=== PATIENT | female | born 1930 | race Caucasian/White ===

== ENCOUNTER 2016-06-14 10:56 | Emergency (ER) | payer MEDICARE, MEDICAID ==
[2016-06-14] MEDS ORDERED: PROMETHAZINE HCL 25 MG/ML VIAL IVP ONE (11:49)
[2016-06-14 12:18] LABS: BASO % 0.9 % (0-6); EOS % 4.2 % (0-6); GRAN % 72.6 % (47-80); HEMATOCRIT 34.2 % (35.0-47.0); HEMOGLOBIN 10.9 gm/dl (11.6-16.0); LYMPH % 10.1 % (16-45); MEAN CELL VOLUME 93.7 fl (81-97); MEAN CORPUSCULAR HGB CONC 31.9 g/dl (32-36); MEAN PLATELET VOLUME 7.8 fl (7.4-10.4); MONO % 12.2 % (0-9); PLATELET COUNT 342 K/uL (130-400); RED BLOOD COUNT 3.65 M/uL (3.80-5.40); RED CELL DISTRIBUTION WIDTH 12.4 % (11.5-14.5); WHITE BLOOD COUNT W/O DIFF 3.4 K/uL (4.2-12.2)
[2016-06-14 12:19] LABS: MEAN CORPUSCULAR HEMOGLOBIN 29.8 pg (27-33)
[2016-06-14 12:30] LABS: ANION GAP 14.6 (7-16); BLOOD UREA NITROGEN 14 mg/dL (7-17); CARBON DIOXIDE 29.4 mmol/L (22-30); CREATININE 0.9 mg/dL (0.52-1.04); EST GLOMERULAR FILTRATION RATE > 60 ml/min; GLUCOSE,RANDOM 96 mg/dL (70-110)
[2016-06-14] MEDS ORDERED: HYDROMORPHONE HCL 1 MG/ML CPJ IVP ONE (13:21)
--- NOTE | 2016-06-14 13:21 | Emergency Department Record ---
History of Present Illness - General Chief Complaint: Dizziness Stated Complaint: DIZZINESS Time Seen by Provider: 06/14/16 11:49 Source: Patient Mode of Arrival: Ambulatory Limitations: No limitations - History of Present Illness Initial Comments: pt has vertigo just like she has had in the past. she had an mri of her brain 3 days ago. she has had n/v and been unable to keep her meds down. she has antivert but it hasnt helped. Complaint: Dizziness Onset/Timin -: Days(s) Timing: Gradual onset Description: Nausea, "Room spinning" History of Same: Yes History of Trauma: No Severity: Moderate Improves With: Nothing Worsens With: Movement, Position Associated Symptoms: Denies other symptoms - [place] Coma Scale Eye Response: (4) Open spontaneously Motor Response: (6) Obeys commands Verbal Response: (5) Oriented [place] Total: 15 - Symptoms of Stroke Symptoms of stroke: Vertigo - Related Data Home Medications Medication Instructions Recorded Confirmed Last Taken Aspirin 325 mg PO DAILY 07/11/14 06/14/16 06/13/16 [place]-3/Dha/Epa/Fish Oil [Fish Oil] 500 mg PO DAILY 07/11/14 06/14/16 06/13/16 Calcium Carbonate [Tums] 200 mg PO DAILY tab.chew 03/23/15 06/14/16 06/13/16 Previous Rx's Medication Instructions Recorded Promethazine HCl [Phenergan] 12.5 mg PO BID #10 tablet 06/14/16 Allergies Allergy/AdvReac Type Severity Reaction Status Date / Time Wogrxwq-[id number]-Djx Reductase AdvReac PT UNSURE Unverified 06/01/16 11:41 Inhibitor OF REACTION Travel Screening - Travel/Exposure Within Last 30 Days Have you traveled within the last 30 days?: No - Travel/Exposure Within Last Year Have you traveled outside the [place] in the last year?: No - Additonal Travel Details Have you been exposed to anyone with a communicable illness?: No - Travel Symptoms Symptom Screening: None Review of Systems Reviewed: No additional complaints except as noted below Constitutional: Reports: As per HPI. Denies: Chills, Fever, Malaise, Night sweats, Weakness, Weight change Eyes: Reports: As per HPI. Denies: Eye discharge, Eye pain, Photophobia, Vision change ENT: Reports: As per HPI. Denies: Congestion, Dental pain, Ear pain, Epistaxis , Hearing loss, Throat pain Respiratory: Reports: As per HPI. Denies: Cough, Dyspnea, Hemoptysis, Stridor, Wheezes Cardiovascular: Reports: As per HPI. Denies: Arrhythmia, Chest pain, Dyspnea on exertion, Edema, Murmurs, Orthopnea, Palpitations, Paroxysmal nocturnal dyspnea, Rheumatic Fever, Syncope Endocrine: Reports: As per HPI. Denies: Fatigue, Heat or cold intolerance, Polydipsia, Polyuria Gastrointestinal: Reports: As per HPI. Denies: Abdominal pain, Constipation, Diarrhea, Hematemesis, Hematochezia, Melena, Nausea, Vomiting Genitourinary: Reports: As per HPI. Denies: Abnormal menses, Discharge, Dyspareunia, Dysuria, Frequency, Hematuria, Incontinence, Retention, Urgency Musculoskeletal: Reports: As per HPI. Denies: Arthralgia, Back pain, Gout, Joint swelling, Myalgia, Neck pain Skin: Reports: As per HPI. Denies: Bruising, Change in color, Change in hair/ nails, Lesions, Pruritus, Rash Neurological: Reports: As per HPI. Denies: Abnormal gait, Confusion, Headache, Numbness, Paresthesias, Seizure, Tingling, Tremors, Vertigo, Weakness Psychiatric: Reports: As per HPI. Denies: Anxiety, Auditory hallucinations, Depression, Homicidal thoughts, Suicidal thoughts, Visual hallucinations Hematological/Lymphatic: Reports: As per HPI. Denies: Anemia, Blood Clots, Easy bleeding, Easy bruising, Swollen glands Past Medical History - SOCIAL HISTORY Smoking Status: Never smoker - RESPIRATORY Hx Respiratory Disorders: No - CARDIOVASCULAR Hx Cardio Disorders: No - NEURO Hx Neuro Disorders: Yes Hx Dizziness: Yes - GI Hx GI Disorders: Yes Hx Reflux: Yes Hx Pancreatitis: Yes - Hx Genitourinary Disorders: No - ENDOCRINE Hx Endocrine Disorders: No - MUSCULOSKELETAL Hx Musculoskeletal Disorders: Yes Hx Arthritis: Yes (neck) - PSYCH Hx Psych Problems: No - HEMATOLOGY/ONCOLOGY Hx Hematology/Oncology Disorders: Yes Hx Cancer: Yes (skin) Hx Chemotherapy: No Hx Radiation Therapy: Yes Family Medical History Any Significant Family History?: Yes Hx HTN: Mother Hx Kidney Disease: Brother/Sister Hx Seizures: Mother Physical Exam - General General Appearance: Alert, Oriented x3, Cooperative, Mild distress - Head Head exam: Normal inspection - Eye Eye exam: Normal appearance, PERRL, EOMI Pupils: Normal accommodation - ENT ENT exam: Normal exam, Mucous membranes moist, Normal external ear exam, Normal orophraynx, TM's normal bilaterally Ear exam: Normal external inspection. negative: External canal tenderness Nasal Exam: Normal inspection. negative: Discharge, Sinus tenderness Mouth exam: Normal external inspection, Tongue normal Teeth exam: Normal inspection. negative: Dental caries Throat exam: Normal inspection. negative: Tonsillar erythema, Tonsillar exudate - Neck Neck exam: Normal inspection, Full ROM. negative: Tenderness - Respiratory Respiratory exam: Normal lung sounds bilaterally. negative: Respiratory distress - Cardiovascular Cardiovascular Exam: Regular rate, Normal rhythm, Normal heart sounds - GI/Abdominal GI/Abdominal exam: Soft, Normal bowel sounds. negative: Tenderness - Rectal Rectal exam: Deferred - exam: Deferred - Extremities Extremities exam: Normal inspection, Full ROM, Normal capillary refill. negative: Tenderness - Back Back exam: Reports: Normal inspection, Full ROM. Denies: Muscle spasm, Rash noted, Tenderness - Neurological Neurological exam: Alert, CN II-XII intact, Normal gait, Oriented X3 - Psychiatric Psychiatric exam: Normal affect, Normal mood - Skin Skin exam: Dry, Intact, Normal color, Rash, Warm Type of lesion: Bite/sting Distribution of rash: Back Description of rash: Macular, Papular Course Vital Signs 06/14/16 11:02 Temperature 97.8 F Pulse Rate 68 Respiratory 20 Rate Blood Pressure 224/100 Pulse Ox 10 L - Reevaluation(s) Reevaluation #1: 06/14/16 14:30 pt developed a headache which improved when she took her bp med.review of mri , neg except aging changes Reevaluation #2: 06/14/16 14:32 06/14/16 14:36 pt feels much better Medical Decision Making - Lab Data Result diagrams: 06/14/16 12:05 06/14/16 12:05 Lab Results 06/14/16 06/14/16 Range/Units 12:05 12:05 WBC 3.4 L (4.2-12.2) K/uL RBC 3.65 L (3.80-5.40) M/uL Hgb 10.9 L (11.6-16.0) gm/dl Hct 34.2 L (35.0-47.0) % MCV 93.7 (81-97) fl MCH 29.8 (27-33) pg MCHC 31.9 L (32-36) g/dl RDW 12.4 (11.5-14.5) % Plt Count 342 (130-400) K/uL MPV 7.8 (7.4-10.4) fl Gran % 72.6 (47-80) % Lymphocytes % 10.1 L (16-45) % Monocytes % 12.2 H (0-9) % Eosinophils % 4.2 (0-6) % Basophils % 0.9 (0-6) % Sodium 141 (136-145) mmol/L Potassium 4.0 (3.5-5.1) mmol/L Chloride 97 L (98-107) mmol/L Carbon Dioxide 29.4 (22-30) mmol/L Anion Gap 14.6 (7-16) BUN 14 (7-17) mg/dL Creatinine 0.9 (0.52-1.04) mg/dL Estimated GFR > 60 ml/min Random Glucose 96 (70-110) mg/dL Calcium 9.5 (8.5-10.1) mg/dL Disposition Disposition: Discharge Clinical Impression: Vertigo Hypertension Qualifiers: Hypertension type: essential hypertension Qualified Code(s): I10 - Essential ( primary) hypertension Disposition: Home, Self-Care Condition: (1) Good Instructions: Vertigo (ED), Hypertension (ED) Additional Instructions: follow up with family doctor. return sooner if worse. recheck blood pressure tomorrow Prescriptions: Promethazine HCl [Phenergan] 12.5 mg PO BID #10 tablet Forms: Patient Portal Access
[2016-06-14] MEDS ORDERED: LOSARTAN POTASSIUM 25 MG TABLET PO ONE (13:32)
[2016-06-15] MEDS ORDERED: LOSARTAN POTASSIUM 25 MG TABLET PO SCH (10:00)
== END 2016-06-14 14:44 | disposition home or self-care (01) ==
LOC: ER 10:56
DX: R42 Dizziness and giddiness (principal); I10 Essential (primary) hypertension; R11.2 Nausea with vomiting, unspecified; R51 Headache
CPT/HCPCS: 99284 ×2; 96374; 96375; 85025; 80048; J1170; J2550

== ENCOUNTER 2016-08-09 10:43 | Emergency (ER) | payer MEDICARE, MEDICAID ==
--- NOTE | 2016-08-09 10:55 | Emergency Department Record ---
History of Present Illness - General Chief Complaint: Dizziness Stated Complaint: DIZZY,NAUSEA CAN'T WALK, NO BALANCE Time Seen by Provider: 08/09/16 10:53 Source: Patient Mode of Arrival: Ambulatory Limitations: No limitations - History of Present Illness Initial Comments: The patient is here due to a one day hx of dizziness which she describes as the room spinning at times and also feeling off balance. The symptoms are much worse with any head movement. She denies any JAMES, visual changes, CP, SOB, or any arm or leg numbness or weakness. The patient is able to walk but does have to hold onto things at times. She states she has had a long hx of this problem for at least 2 years and has seen multiple specialists with no resolution or diagnosis given. The symptoms do wax and wane and have not been present for months until yesterday when they returned. MD Complaint: Dizziness, Lightheadedness, Difficulty walking Onset/Timin -: Days(s) Timing: Unsure History of Same: Yes History of Trauma: No Severity: Mild Improves With: Nothing Worsens With: Nothing Associated Symptoms: Denies other symptoms - [place] Coma Scale Eye Response: (4) Open spontaneously Motor Response: (6) Obeys commands Verbal Response: (5) Oriented [place] Total: 15 - Related Data Home Medications Medication Instructions Recorded Confirmed Last Taken Aspirin 325 mg PO DAILY 07/11/14 08/09/16 08/09/16 [place]-3/Dha/Epa/Fish Oil [Fish Oil] 500 mg PO DAILY 07/11/14 08/09/16 08/09/16 Calcium Carbonate [Tums] 200 mg PO DAILY tab.chew 03/23/15 08/09/16 08/09/16 Hydrocodone/Acetaminophen [[place] 1 tab PO Q6H PRN 08/09/16 08/09/16 08/09/16 5mg/325mg] Allergies Allergy/AdvReac Type Severity Reaction Status Date / Time Lrjjigq-Hzq-Hdz Reductase AdvReac PT UNSURE Verified 08/09/16 10:54 Inhibitor OF REACTION Travel Screening - Travel/Exposure Within Last 30 Days Have you traveled within the last 30 days?: No - Travel/Exposure Within Last Year Have you traveled outside the [place] in the last year?: No - Additonal Travel Details Have you been exposed to anyone with a communicable illness?: No - Travel Symptoms Symptom Screening: None Review of Systems Constitutional: Denies: Chills, Fever Eyes: Denies: Eye discharge ENT: Denies: Congestion Respiratory: Denies: Cough, Dyspnea Cardiovascular: Denies: Arrhythmia, Chest pain Past Medical History - SOCIAL HISTORY Smoking Status: Never smoker Alcohol Use: Occassional Drug Use: None - RESPIRATORY Hx Respiratory Disorders: No - CARDIOVASCULAR Hx Cardio Disorders: No - NEURO Hx Neuro Disorders: Yes Hx Dizziness: Yes - GI Hx GI Disorders: Yes Hx Reflux: Yes Hx Pancreatitis: Yes - Hx Genitourinary Disorders: No - ENDOCRINE Hx Endocrine Disorders: No - MUSCULOSKELETAL Hx Musculoskeletal Disorders: Yes Hx Arthritis: Yes (neck) - PSYCH Hx Psych Problems: No - HEMATOLOGY/ONCOLOGY Hx Hematology/Oncology Disorders: Yes Hx Cancer: Yes (skin) Hx Chemotherapy: No Hx Radiation Therapy: Yes Family Medical History Any Significant Family History?: No Hx HTN: Mother Hx Kidney Disease: Brother/Sister Hx Seizures: Mother Physical Exam - General General Appearance: Alert, Oriented x3, Cooperative, No acute distress - Head Head exam: Atraumatic, Normocephalic, Normal inspection - Eye Eye exam: Normal appearance, PERRL - Neck Neck exam: Normal inspection, Full ROM. negative: Tenderness - Respiratory Respiratory exam: Normal lung sounds bilaterally. negative: Respiratory distress - Cardiovascular Cardiovascular Exam: Regular rate, Normal rhythm, Normal heart sounds - GI/Abdominal GI/Abdominal exam: Soft, Normal bowel sounds. negative: Tenderness - Extremities Extremities exam: Normal inspection, Full ROM, Normal capillary refill. negative: Tenderness - Neurological Neurological exam: Alert, Normal gait. negative: Abnormal gait, Motor sensory deficit Course Vital Signs 08/09/16 10:45 Temperature 97.1 F L Pulse Rate 70 Respiratory 14 Rate Blood Pressure 215/101 Pulse Ox 97 - Reevaluation(s) Reevaluation #1: The patient states she feels better at this time. She has no dizziness or lightheadedness presently and her BP is improved. 08/09/16 11:47 Reevaluation #2: The patient is doing well at this time. Her BP is improved and she denies any dizziness unless she is moving her head or walking. I did get the patient up walking and she is mildly unsteady but able to walk without falling. She states this is exactly normal for her Vertigo and it does get this bad at times. Due to her mild unsteadiness I did recommend keeping the patient in the hospital because I am a little concerned that she may fall at home. The patient understands this and still would like to go home. I explained to her that she could go home and fall and have a fx'd hip or a stroke or broken neck and she accepts the risks. She is to see her PCP next week for recheck. 08/09/16 12:37 Reevaluation #3: I did discuss the case with Dr. Winston and she agrees with the plan. 08/09/16 12:42 Medical Decision Making - Data Complexity MDM Data: Labs Ordered and/or Reviewed, X-Ray Ordered and/or Reviewed - Lab Data Result diagrams: 08/09/16 11:10 08/09/16 11:10 - Radiology Data Radiology results: Report reviewed (Head CT: No acute changes.) Disposition Disposition: Discharge Clinical Impression: Vertigo Instructions: Dizziness (ED) Additional Instructions: Please continue your regular medicines for dizziness and please see your PCP next week. Please return to the ER for any problems or worsening symptoms. Forms: Patient Portal Access Time of Disposition: 12:42
[2016-08-09 11:16] LABS: BASO % 1.4 % (0-6); EOS % 2.2 % (0-6); GRAN % 68.8 % (47-80); HEMATOCRIT 32.4 % (35.0-47.0); HEMOGLOBIN 10.3 gm/dl (11.6-16.0); LYMPH % 16.1 % (16-45); MEAN CELL VOLUME 92.8 fl (81-97); MEAN CORPUSCULAR HEMOGLOBIN 29.5 pg (27-33); MEAN CORPUSCULAR HGB CONC 31.8 g/dl (32-36); MEAN PLATELET VOLUME 7.7 fl (7.4-10.4); MONO % 11.5 % (0-9); PLATELET COUNT 328 K/uL (130-400); RED BLOOD COUNT 3.49 M/uL (3.80-5.40); RED CELL DISTRIBUTION WIDTH 13.1 % (11.5-14.5); WHITE BLOOD COUNT W/O DIFF 2.8 K/uL (4.2-12.2)
[2016-08-09] MEDS: MECLIZINE 25 MG TABLET PO ONE (11:26)
[2016-08-09] MEDS: DIAZEPAM 5 MG TABLET PO ONE (11:26)
[2016-08-09 11:28] LABS: ALB/GLOB RATIO 1.2 (1.1-1.8); ALBUMIN 4.1 gm/dL (3.5-5.0); ALKALINE PHOSPHATASE 66 U/L (38-126); ALT/SGPT 19 U/L (9-52); ANION GAP 8.2 (7-16); AST/SGOT 23 U/L (14-36); BLOOD UREA NITROGEN 19 mg/dL (7-17); CARBON DIOXIDE 28.8 mmol/L (22-30); CREATININE 0.9 mg/dL (0.52-1.04); EST GLOMERULAR FILTRATION RATE > 60 ml/min; GLUCOSE,RANDOM 91 mg/dL (70-110); TOTAL PROTEIN 7.4 gm/dL (6.3-8.2)
== END 2016-08-09 12:52 | disposition home or self-care (01) ==
LOC: ER 10:43
DX: R42 Dizziness and giddiness (principal); R11.0 Nausea; R26.2 Difficulty in walking, not elsewhere classified
CPT/HCPCS: 99283; 99284; 85025; 80053; 70450; J3490

== ENCOUNTER 2019-05-02 13:41 | Emergency (ER) | payer MEDICARE ==
[2019-05-02] MEDS ORDERED: 0.9 % SODIUM CHLORIDE 1,000 ML BAG IV ONE (14:53)
[2019-05-02] MEDS ORDERED: ONDANSETRON HCL IV 4 MG/2 ML VIAL IV ONE (14:53)
[2019-05-02] MEDS ORDERED: MAGNESIUM HYDROXIDE/AL HYDROX 30 ML, LIDOCAINE VISC 2% 15ML 15 ML PO ONE ×2 (14:54)
--- NOTE | 2019-05-02 14:58 | Emergency Department Record ---
History of Present Illness - General Chief Complaint: Abdominal Pain Stated Complaint: UPPER ADB PAIN Time Seen by Provider: 05/02/19 14:37 Source: Patient Mode of Arrival: Ambulatory Limitations: No limitations - History of Present Illness Initial Comments: The patient is here due to a 10 day hx of upper abdominal pain. The pain is sharp and stabbing and worse after eating at times. She has had nausea but no vomiting. The patient denies any Cp, SOB, back pain or dysuria. She has had a hx of pancreatitis with pain similar to this and she does drink alcohol daily. The patient's only abdominal surgery is an Appendectomy. MD Complaint: Abdominal pain Onset/Timin -: Days(s) Location: Epigastric Severity scale (1-10): 10 Quality: Other Consistency: Constant Improves With: Nothing Worsens With: Nothing - Related Data Allergies Allergy/AdvReac Type Severity Reaction Status Date / Time Hdaihmp-Ekf-Ewz Reductase AdvReac PT UNSURE Verified 05/02/19 14:40 Inhibitor OF REACTION Travel Screening - Travel/Exposure Within Last 30 Days Have you traveled within the last 30 days?: No - Travel/Exposure Within Last Year Have you traveled outside the [place] in the last year?: No - Additonal Travel Details Have you been exposed to anyone with a communicable illness?: No - Travel Symptoms Symptom Screening: None Review of Systems Constitutional: Denies: Chills, Fever Eyes: Denies: Eye discharge ENT: Denies: Congestion Respiratory: Denies: Cough, Dyspnea Cardiovascular: Denies: Arrhythmia, Chest pain Endocrine: Denies: Fatigue Gastrointestinal: Reports: Abdominal pain, Nausea. Denies: Diarrhea, Vomiting Genitourinary: Denies: Dysuria Musculoskeletal: Denies: Arthralgia Skin: Denies: Bruising Past Medical History - SOCIAL HISTORY Smoking Status: Never smoker Alcohol Use: Heavy Drug Use: None - RESPIRATORY Hx Respiratory Disorders: No - CARDIOVASCULAR Hx Cardio Disorders: No - NEURO Hx Neuro Disorders: Yes Hx Dizziness: Yes - GI Hx GI Disorders: Yes Hx Reflux: Yes Hx Pancreatitis: Yes - Hx Genitourinary Disorders: No - ENDOCRINE Hx Endocrine Disorders: No - MUSCULOSKELETAL Hx Musculoskeletal Disorders: Yes Hx Arthritis: Yes (neck) - PSYCH Hx Psych Problems: No - HEMATOLOGY/ONCOLOGY Hx Hematology/Oncology Disorders: Yes Hx Cancer: Yes (skin) Hx Chemotherapy: No Hx Radiation Therapy: Yes Family Medical History Any Significant Family History?: Yes Hx HTN: Mother Hx Kidney Disease: Brother/Sister Hx Seizures: Mother Physical Exam - General General Appearance: Alert, Oriented x3, Cooperative, No acute distress - Head Head exam: Atraumatic, Normocephalic, Normal inspection - Eye Eye exam: Normal appearance, PERRL - ENT Throat exam: Normal inspection. negative: Tonsillar erythema, Tonsillar exudate - Neck Neck exam: Normal inspection, Full ROM. negative: Tenderness - Respiratory Respiratory exam: Normal lung sounds bilaterally. negative: Respiratory distress - Cardiovascular Cardiovascular Exam: Regular rate, Normal rhythm, Normal heart sounds - GI/Abdominal GI/Abdominal exam: Soft, Normal bowel sounds, Tenderness (There is diffuse upper abdominal pain.). negative: Guarding, Rebound, Rigid - Extremities Extremities exam: Normal inspection, Full ROM, Normal capillary refill. negative: Tenderness - Neurological Neurological exam: Alert, Normal gait. negative: Abnormal gait, Motor sensory deficit Course Vital Signs 05/02/19 14:42 Temperature 97.9 F Pulse Rate 84 Respiratory 18 Rate Blood Pressure 189/79 Pulse Ox 97 - Reevaluation(s) Reevaluation #1: The patient is doing a lot better at this time. She states the pain is almost gone at this time. We will order an abdominal CT to R/O obstruction. 05/02/19 15:51 Reevaluation #2: The patient is doing a lot better at this time. She states her pain has now resolved. She did just return from CT. 05/02/19 16:13 Reevaluation #3: The patient is doing a lot better at this time. She states the pain has resolved 100% with the GI medicines. She is to double her home Omeprazole for a week and to see her PCP next week for recheck. On exam her abdomen is very soft and nontender in the upper and lower abdomen. 05/02/19 16:56 Medical Decision Making - Data Complexity MDM Data: Labs Ordered and/or Reviewed, X-Ray Ordered and/or Reviewed - Lab Data Result diagrams: 05/02/19 15:25 05/02/19 15:25 - Radiology Data Radiology results: Report reviewed (CT: Neg for any acute changes. ) Disposition Disposition: Discharge Clinical Impression: Abdominal pain Qualifiers: Abdominal location: upper abdomen, unspecified Qualified Code(s): R10.10 - Upper abdominal pain, unspecified Disposition: Home, Self-Care Condition: (2) Stable Instructions: Abdominal Pain (ED) Additional Instructions: Please eat a very bland diet and please do not drink alcohol. Please double your Omeprazole for a week and then back to the normal dose. Please see your family doctor for recheck in 3 days and return to the ER for any worsening issues. Forms: Patient Portal Access Time of Disposition: 16:59 Quality - Quality Measures Quality Measures: N/A - Blood Pressure Screening View Details: Yes Does Patient Have Any of the Following: Active Dx of HTN Blood Pressure Classification: Hypertensive Reading Systolic Measurement: 189 Diastolic Measurement: 79 Screening for High Blood Pressure: Patient Exclusion, Hx of HTN [[id number]]
[2019-05-02 15:30] LABS: ABSOLUTE NEUTROPHIL COUNT 3.02; EOS % 3.2 % (0-6); GRAN % 75.2 % (47-80); HEMATOCRIT 33.9 % (35.0-47.0); HEMOGLOBIN 10.7 gm/dl (11.6-16.0); LYMPH % 11.4 % (16-45); MEAN CELL VOLUME 91.4 fl (81-97); MEAN CORPUSCULAR HEMOGLOBIN 28.8 pg (27-33); MEAN CORPUSCULAR HGB CONC 31.6 g/dl (32-36); MEAN PLATELET VOLUME 7.8 fl (7.4-10.4); MONO % 9.2 % (0-9); PLATELET COUNT 393 K/uL (130-400); RED BLOOD COUNT 3.71 M/uL (3.80-5.40); RED CELL DISTRIBUTION WIDTH 13.9 % (11.5-14.5)
[2019-05-02 15:41] LABS: BLOOD UREA NITROGEN 26 mg/dL (8-23); CREATININE 1.2 mg/dL (0.5-0.9); EST GLOMERULAR FILTRATION RATE 45 mL/min
[2019-05-02 15:42] LABS: LIPASE 16 U/L (13-60); TOTAL PROTEIN 7.4 g/dL (6.6-8.7)
[2019-05-02 15:44] LABS: GLUCOSE,RANDOM 97 mg/dL (74-109)
[2019-05-02 15:46] LABS: ALBUMIN 4.1 g/dL (4.0-5.0); ALT/SGPT 8 U/L (<33); AST/SGOT 18 U/L (10.0-35.0)
[2019-05-02 15:47] LABS: ALKALINE PHOSPHATASE 76 U/L (35-104); BILIRUBIN,DIRECT < 0.2 mg/dL (0-0.3)
[2019-05-02] MEDS ORDERED: SUCRALFATE 1 G/10 ML UD PO ONE (15:51)
--- NOTE | 2019-05-02 16:44 | CT SCAN REPORT ---
EXAMINATION: CT Abdomen and Pelvis without IV Contrast EXAM DATE: 05/02/2019 4:11 PM TECHNIQUE: Standard protocol CT imaging of the abdomen and pelvis was performed without intravenous c ontrast. INDICATION: Epigastric pain COMPARISON: 07/12/2014 ENCOUNTER: Not applicable CT ABDOMEN AND PELVIS FINDINGS: Lung Bases: Included extent of the lung bases are clear. Hepatobiliary: The liver has a normal size with a smooth surface. There is no biliary dilatation and the gallbladder is unremarkable. Pancreas: The pancreas is normal. Spleen: The spleen is not enlarged. Adrenals: The adrenal glands are normal. Kidneys, Ureters, & Bladder: Both kidneys have a normal size and morphology. There is no hydronephro sis. No renal calculi are present. Both ureters have a normal course and caliber and the urinary blad na a normal morphology and uniform wall thickness. No ureteral or bladder calculi are identified. Gastrointestinal: The stomach is poorly evaluated due to lack of distention. No small bowel dilatatio n or obstruction. The appendix is not identified. The large bowel is within normal limits. Reproductive Organs: Unremarkable Lymphatic System: There is no adenopathy within the abdomen or pelvis. Vasculature: Normal caliber abdominal aorta Peritoneum: No free fluid, free air, or inflammation Abdominal wall & Musculoskeletal: No suspicious bone lesions. Assessment of the solid organs, soft tissues, and vascular structures is overall limited on noncontra st imaging, IMPRESSION: No acute process within the abdomen and pelvis. Dictated by: Nimesh Chacko MD on 05/02/2019 4:37 PM. .
== END 2019-05-02 17:28 | disposition home or self-care (01) ==
LOC: ER 13:41
DX: R10.13 Epigastric pain (principal); R11.0 Nausea; I10 Essential (primary) hypertension
CPT/HCPCS: 99284 ×2; 96374; 83690; 85025; 80076; 86140; 80048; 74176; J2405; J7030